=== PATIENT | male | born 1975 | race Two or more races ===

== ENCOUNTER 2025-02-22 22:01 | Emergency (ER) | payer SELFPAY ==
[~2025-02-22] VITALS: Ht 172.7 cm; Wt 100.0 kg
[2025-02-22] MEDS ORDERED: ATROPINE SULF 1 MG/10ml SYR IV ONE (22:02)
[2025-02-22 22:08] VITALS: BP 93/58; PULSE 150; RESP 12; TEMP 100.3; O2SAT 70
[2025-02-22] MEDS ORDERED: EPINEPHrine HCL 250 ML IV ONE (22:25)
[2025-02-22] MEDS ORDERED: EPINEPHrine HCL 1 MG/10 ML SYRG ONE ×2 (22:35→22:54)
[2025-02-22] MEDS ORDERED: ATROPINE SULF 1 MG/10ml SYR ONE (22:48)
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
== END 2025-02-22 22:51 ==
LOC: ER 22:01 → EDBD 22:01 → ER 22:51
DX: I46.9 Cardiac arrest, cause unspecified (principal); V89.2XXA Person injured in unspecified motor-vehicle accident, traffic, initial encounter; Y93.I9 Activity, other involving external motion; Y92.488 Other paved roadways as the place of occurrence of the external cause; Y99.8 Other external cause status
CPT/HCPCS: 31500; 36430; 86920; 92950; 99291; J0169; P9016